=== PATIENT | male | born 1950 | race Caucasian/White ===

== ENCOUNTER 2018-01-30 05:18 | Emergency (ER) | payer OTHER ==
[~2018-01-30] VITALS: Ht 193 cm; Wt 104.3 kg
[~2018-01-30 05:18] MED LIST: ALPH-E-MIXED-4400 IU PO; ATENOLOL50 M1 PO; CALCIUM 600600 M1 PO; COUMADIN5 M2 PO; DILTIAZEM 12HR120 MG PO; FLOMAX(MONOGRA0.4 MG PO; LIPOFLAVONOID1 TAB PO; MULTIVITAMIN1 TAB PO; PERCOCET 325 MG1 TA2 PO; PRINIVIL10 M1 PO; VALIUM2 MG PO; VALIUM5 M2 PO
--- NOTE | 2018-01-30 05:48 | ED CARDIAC/CP/PALPITATIONS ---
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 yes HPI: Patient presents for evaluation of heart palpitations and began abruptly about 90 minutes prior to arrival he was home watching TV. Patient states that he occasionally feels a rapid heart beat but it lasts very briefly. This episode lasted considerably longer than usual. He denies any associated chest pain or unusual lightheadedness/dizziness (patient states he has chronic dizziness). He took his usual dose of atenolol 100 mg and is beginning to feel better. (Nayely BEGUM,Marvin Perry) Reconcile Medications Atenolol 50 MG TABLET 2 TAB PO DAILY HEART (Reported) Diltiazem HCl (Diltiazem 12HR ER) 120 MG CAP.ER.12H 1 CAP PO DAILY HEART ( Reported) Lisinopril (Prinivil) 10 MG TABLET 1 TAB PO DAILY HEART (Reported) Warfarin Sodium (Coumadin) 5 MG TABLET 1 TAB PO 1700 BLOOD THINNER (Reported) (Aamir BEGUM,Chente) Past History Travel History Traveled to [place] past 21 day No Medical History Any Pertinent Medical History? see below for history Neurological: NONE EENT: hearing loss, meniere's Cardiovascular: AFIB, hypertension, DEFIBULATOR Respiratory: NONE Gastrointestinal: NONE Hepatic: NONE Renal: nephrolithiasis Musculoskeletal: NONE Psychiatric: NONE Endocrine: NONE History of MRSA: No History of VRE: No Surgical History Surgical History: ICD Psychosocial History Who do you live with Patient/Self Services at Home None What is your primary language Norwegian Tobacco Use: Never used Family History Hx Contributory? No (Nayely BEGUM,Marvin Perry) Review of Systems Review of Systems Constitutional: Reports: no symptoms. EENTM: Reports: no symptoms. Respiratory: Reports: no symptoms. Cardiovascular: Reports: palpitations. GI: Reports: no symptoms. Genitourinary: Reports: no symptoms. Musculoskeletal: Reports: no symptoms. Skin: Reports: no symptoms. Neurological/Psychological: Reports: no symptoms. Hematologic/Endocrine: Reports: no symptoms. Immunologic/Allergic: Reports: no symptoms. All Other Systems: Reviewed and Negative (Nayely BEGUM,Marvin Perry) Physical Exam Physical Exam Cardiovascular: SEE BELOW Comments: Gen.: Well-nourished, well-developed, no acute respiratory distress. Head: Normocephalic, atraumatic. Eyes: Normal inspection bilaterally Ears: Normal inspection bilaterally Nose: Normal inspection Throat/mouth : Moist mucosa Neck: Supple, full range of motion, no goiter, no JVD Heart: Slightly IRRegular rate and rhythm, no murmurs rubs or gallops Lungs: Clear to auscultation bilaterally with normal air entry Chest: Nontender Back: Normal range of motion Abdomen: Soft, nontender, nondistended, normal bowel sounds Extremities: Normal range of motion grossly, equal radial pulses, no cyanosis clubbing or edema, calves nontender Neurologic: Cranial nerves grossly intact, speech is clear Skin: warm and dry Psychiatric: Calm, cooperative, no apparent delusions or hallucinations Core Measures ACS in differential dx? No CVA/TIA Diagnosis No Sepsis Present: No Sepsis Focused Exam Completed? No (Nayely BEGUM,Marvin Perry) Progress Differential Diagnosis: AMI, atrial fibrillation, PSVT, PVCs/PACs, unstable angina, V-fib/V-Tach Plan of Care: Orders Procedure Date/time Status TROPONIN LEVEL 01/30 0855 Complete PARTIAL THROMBOPLASTIN TIME 01/30 0549 Complete PROTHROMBIN TIME 01/30 0549 Complete Telemetry/Egg Breaker 01/30 0546 Active THYROID STIMULATING HORMONE 01/30 0546 Complete TROPONIN LEVEL 01/30 0546 Complete MAGNESIUM 01/30 0546 Complete CBC WITHOUT DIFFERENTIAL 01/30 0546 Complete CALCIUM 01/30 0546 Complete BASIC METABOLIC PANEL 01/30 0546 Complete EKG 01/30 0520 Active Laboratory Tests 01/30/18 0909: Troponin I < 0.01 01/30/18 0545: Anion Gap 12, Estimated GFR > 60, BUN/Creatinine Ratio 18.0, Glucose 116 H, Calcium 9.1, Magnesium 2.1, Troponin I < 0.01, TSH 6.180 H, PT 21.6 H, INR 1.97 H, APTT 41 H, CBC w Diff NO MAN DIFF REQ, RBC 4.54 L, MCV 91.8, MCH 30.6 , MCHC 33.3, RDW 14.6 H, MPV 9.3, Gran % 44.8, Lymphocytes % 33.3, Monocytes % 12.6 H, Eosinophils % 8.7 H, Basophils % 0.6, Absolute Granulocytes 3.4, Absolute Lymphocytes 2.5, Absolute Monocytes 1.0 H, Absolute Eosinophils 0.7, Absolute Basophils 0 Diagnostic Imaging: Discussed w/RAD: Radiology Read. CXR Impression: PATIENT: PEÑA ORR PRESENT AGE: 67 PATIENT ACCOUNT NO: [id number] : 52 LOCATION: [facility] ORDERING PHYSICIAN: Marvin Adler MD SERVICE DATE: 01/30/18 EXAM TYPE: RAD - XRY-PORTABLE CHEST XRAY EXAMINATION: XR PORTABLE CHEST CLINICAL INFORMATION: Pleural effusion. CHF. Palpitation. COMPARISON: Chest x-ray June 21, 2014 TECHNIQUE: Portable frontal view of the chest was obtained. 5:57 AM FINDINGS: The heart size is enlarged. Pacemaker leads at base of heart unchanged position since prior study. No pulmonary vascular congestion. The lungs are clear. There is no pleural effusion and there is no pneumothorax. IMPRESSION: Cardiomegaly. Pacemaker leads unchanged position. No pulmonary vascular congestion. No infiltrate. No pleural effusion. DICTATED BY: Shine Reid MD DATE/TIME DICTATED :01/30/18622 CRACKING AND FANNING MACHINE OPERATOR:GERARDO DATE/TIME TRANSCRIBED:01/30/18622 CONFIDENTIAL, DO NOT COPY WITHOUT APPROPRIATE AUTHORIZATION. 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 (Nayely BEGUM,Marvin Perry) Departure Departure Condition: Stable Clinical Impression Primary Impression: Palpitations Departure Forms: Customer Survey General Discharge Information (Nayely BEGUM,Marvin Perry) Departure Disposition: HOME OR SELF CARE Referrals: Gordon BEGUM,Ellen (Chente Rutledge MD) Critical Care Note Critical Care Note Critical Care Time: non-applicable (Nayely BEGUM,Marvin Perry)
[2018-01-30 05:58] LABS: ABSOLUTE BASOPHIL COUNT 0 /CUMM (0.0-0.2); ABSOLUTE EOSINOPHIL COUNT 0.7 /CUMM (0.0-0.7); ABSOLUTE GRANULOCYTE CT 3.4 /CUMM (1.4-6.5); ABSOLUTE LYMPH COUNT 2.5 /CUMM (1.2-3.4); BASOPHIL % 0.6 % (0.0-2.0); EOSINOPHIL % 8.7 % (0-5); GRANULOCYTE % 44.8 % (42.2-75.2); HEMATOCRIT 41.7 % (42-52); MEAN CORPUSCULAR HGB 30.6 PG (27.0-31.0); MEAN CORPUSCULAR HGB CONC 33.3 G/DL (33.0-37.0); MEAN CORPUSCULAR VOLUME 91.8 FL (80.0-94.0); MEAN PLATELET VOLUME 9.3 FL (7.4-10.4); PLATELET COUNT 181 /CUMM (130-400); RBC DISTRIBUTION WIDTH 14.6 % (11.5-14.5); RED BLOOD CELL CT 4.54 /CUMM (4.70-6.10); WHITE BLOOD CELL COUNT 7.6 /CUMM (4.8-10.8)
[2018-01-30 06:05] LABS: PT 21.6 SEC (9.4-12.5); PTT 41 SEC (25-37)
--- NOTE | 2018-01-30 06:27 | RADIOLOGY REPORT ---
EXAMINATION: XR PORTABLE CHEST CLINICAL INFORMATION: Pleural effusion. CHF. Palpitation. COMPARISON: Chest x-ray June 21, 2014 TECHNIQUE: Portable frontal view of the chest was obtained. 5:57 AM FINDINGS: The heart size is enlarged. Pacemaker leads at base of heart unchanged position since prior study. No pulmonary vascular congestion. The lungs are clear. There is no pleural effusion and there is no pneumothorax. IMPRESSION: Cardiomegaly. Pacemaker leads unchanged position. No pulmonary vascular congestion. No infiltrate. No pleural effusion.
[2018-01-30 10:27] VITALS: BP 146/88
== END 2018-01-30 10:32 ==
LOC: ERH 05:18
PROVIDERS: Emergency Medicine
DX: R00.2 Palpitations (principal)
CPT/HCPCS: 71045; 93005; 93010